=== PATIENT | female | born 1940 | race Caucasian/White ===

== ENCOUNTER → 2017-10-07 | Outpatient (CLI) | payer MEDICARE ==
[~2017-10-07] MED LIST: ALENDRONATE SOD70 MG PO; BENADRYL25 MG PO; DELTASONE50 MG PO; EPI-PEN1 MG/ML MR; FAMOTIDINE40 MG PO; FIBER TABLETS1 TAB PO; LEVOTHYROXINE0.1 M1 PO; MINOCYCLINE HC100 MG PO; PEPCID20 MG PO; SIMVASTATIN40 MG PO
== END | disposition home or self-care (01) ==
LOC: MAMMO 09-27 08:30
DX: Z12.31 Encounter for screening mammogram for malignant neoplasm of breast (principal)

== ENCOUNTER → 2018-10-12 | Outpatient (CLI) | payer MEDICARE | END | disposition home or self-care (01) | LOC: MAMMO 02:14 | DX: Z12.31 Encounter for screening mammogram for malignant neoplasm of breast (principal); R92.1 Mammographic calcification found on diagnostic imaging of breast ==

== ENCOUNTER 2025-11-05 17:17 | Inpatient (IN) | payer MEDICARE ==
[~2025-11-05] VITALS: Ht 160 cm; Wt 68.2 kg
[2025-11-05 17:27] VITALS: BP 179/98
[2025-11-05] MEDS ORDERED: HYDROCODONE-AC1 EAC1 PO (18:54)
[2025-11-05 19:06] LABS: BILIRUBIN Negative (Negative); BLOOD Trace-Lysed (Negative); CLARITY Cloudy (Clear); COLOR Yellow (Yellow); KETONE Negative (Negative); LEUKO ESTERASE 3+ (Negative); NITRITE Positive (Negative); PH 7.0 (4.5-8.0); SPECIFIC GRAVITY 1.015 (1.001-1.030); UROBILINOGEN 1.0 E.U./dl (0.0-1.0)
[2025-11-05 19:15] LABS: BACTERIA 3+; MUCOUS TRACE; WBC TNTC wbc/hpf (0-5)
[2025-11-05] MEDS ORDERED: Acetaminophen/Oxycodone 5 MG/325 MG TABLET PO ONE (19:25)
[2025-11-05] MEDS ORDERED: LOSARTAN POTASS25 M1 PO (19:45)
[2025-11-05] MEDS ORDERED: SODIUM CHLORIDE 0.9% 1,000 ML IV ONE (19:50)
[2025-11-05 20:06] LABS: BASO # 0.1 10*3/uL (0.0-0.1); BASO % 0.3 % (0.0-1.0); EOS # 0.0 10*3/uL (0.0-0.4); EOS % 0.2 % (1.0-4.0); MEAN CELL VOLUME 94.7 fl (81.0-99.0); MEAN CORPUSCULAR HGB 29.8 pg (27.0-31.0); MEAN PLATELET VOLUME 10.9 fl (9.6-12.3); MONO # 0.9 10*3/uL (0.1-1.0); MONO % 5.8 % (3.0-9.0); NEUT # 12.2 10*3/uL (2.3-7.9); NEUT % 82.8 % (47.0-73.0); NUCLEATED RED BLOOD CELL 0.0 % (0.0-0.0); NUCLEATED RED BLOOD CELL 0.0 10*3/uL (0.0-0.0); PLATELET COUNT AUTOMATED 209 10*3/uL (130-400); RED CELL DISTRI WIDTH 12.4 % (0-14.5)
[2025-11-05] MEDS ORDERED: Ondansetron Hydrochloride 4 MG/2 ML VIAL IV PRN (20:20)
[2025-11-05] MEDS ORDERED: ACETAMINOPHEN 325 MG TAB PO PRN (20:20)
[2025-11-05] MEDS ORDERED: Acetaminophen/Hydrocodone 5 MG/325 MG TABLET PO PRN (20:20)
[2025-11-05] MEDS ORDERED: BISACODYL 5 MG TAB PO PRN (20:20)
[2025-11-05 20:30] VITALS: BP 156/73
[2025-11-05] MEDS ORDERED: IRBESARTAN150 MG PO (20:42)
[2025-11-05 21:10] LABS: BUN 21 mg/dl (9-23); SGPT/ALT 31 U/L (5-49)
[2025-11-06] VITALS: BP 129/59; BP 148/94
[2025-11-06 06:24] LABS: BASO # 0.0 10*3/uL (0.0-0.1); BASO % 0.2 % (0.0-1.0); EOS # 0.1 10*3/uL (0.0-0.4); EOS % 1.6 % (1.0-4.0); MEAN CELL VOLUME 94.5 fl (81.0-99.0); MEAN CORPUSCULAR HGB 30.4 pg (27.0-31.0); MEAN PLATELET VOLUME 10.7 fl (9.6-12.3); MONO # 0.9 10*3/uL (0.1-1.0); MONO % 10.8 % (3.0-9.0); NEUT # 6.1 10*3/uL (2.3-7.9); NEUT % 70.7 % (47.0-73.0); NUCLEATED RED BLOOD CELL 0.0 % (0.0-0.0); NUCLEATED RED BLOOD CELL 0.0 10*3/uL (0.0-0.0); PLATELET COUNT AUTOMATED 178 10*3/uL (130-400); RED CELL DISTRI WIDTH 12.6 % (0-14.5)
[2025-11-06 06:45] LABS: BUN 19 mg/dl (9-23); FREE T4 1.24 ng/dl (0.89-1.76); LDL CHOLESTEROL 78 mg/dL (9-159); SGPT/ALT 37 U/L (5-49)
[2025-11-06 08:00] VITALS: BP 130/73
[2025-11-06] MEDS ORDERED: ATORVASTATIN CALCIUM 40 MG TABLET PO SCH (10:00)
[2025-11-06] MEDS ORDERED: FAMOTIDINE 20 MG TAB PO SCH (10:00)
[2025-11-06 12:00] VITALS: BP 148/59
[2025-11-06] MEDS ORDERED: Acetaminophen/Hydrocodone ES 7.5/325 tablet PO PRN (14:25)
[2025-11-06 16:00] VITALS: BP 117/66; BP 148/59
[2025-11-06 20:00] VITALS: BP 130/67
[2025-11-06] MEDS ORDERED: TEMAZEPAM 15 MG CAP PO PRN (22:00)
[2025-11-07] VITALS: BP 116/47
[2025-11-07 07:22] LABS: BASO # 0.0 10*3/uL (0.0-0.1); BASO % 0.4 % (0.0-1.0); EOS # 0.2 10*3/uL (0.0-0.4); EOS % 2.8 % (1.0-4.0); MEAN CELL VOLUME 96.1 fl (81.0-99.0); MEAN CORPUSCULAR HGB 30.7 pg (27.0-31.0); MEAN PLATELET VOLUME 10.6 fl (9.6-12.3); MONO # 1.0 10*3/uL (0.1-1.0); MONO % 12.5 % (3.0-9.0); NEUT # 5.2 10*3/uL (2.3-7.9); NEUT % 63.2 % (47.0-73.0); NUCLEATED RED BLOOD CELL 0.0 % (0.0-0.0); NUCLEATED RED BLOOD CELL 0.0 10*3/uL (0.0-0.0); PLATELET COUNT AUTOMATED 174 10*3/uL (130-400); RED CELL DISTRI WIDTH 12.8 % (0-14.5)
[2025-11-07 07:48] LABS: BUN 17 mg/dl (9-23)
[2025-11-07 08:00] VITALS: BP 141/57
[2025-11-07 12:00] VITALS: BP 138/69
[2025-11-07] MEDS ORDERED: Acetaminophen/Oxycodone Hydr 7.5 MG/325 MG TABLET PO PRN (12:10)
[2025-11-07] MEDS ORDERED: HYDROmorphONE Hydrochloride 0.5 MG/0.5 ML SYRINGE IV PRN (14:40)
[2025-11-07] MEDS ORDERED: SODIUM CHLORIDE 0.9% 1,000 ML IV ONE (14:40)
[2025-11-07] MEDS ORDERED: diphenhydrAMINE hydrochloride 50 MG/ML VIAL IV ONE (14:40)
[2025-11-07 16:00] VITALS: BP 137/54
[2025-11-07] MEDS ORDERED: Acetaminophen/Oxycodone Hydr 7.5 MG/325 MG TABLET PO SCH (18:00)
[2025-11-07 20:00] VITALS: BP 131/62
[2025-11-08] VITALS: BP 131/62
[2025-11-08 06:27] LABS: BASO # 0.0 10*3/uL (0.0-0.1); BASO % 0.5 % (0.0-1.0); EOS # 0.2 10*3/uL (0.0-0.4); EOS % 2.8 % (1.0-4.0); MEAN CELL VOLUME 96.2 fl (81.0-99.0); MEAN CORPUSCULAR HGB 30.9 pg (27.0-31.0); MEAN PLATELET VOLUME 11.0 fl (9.6-12.3); MONO # 1.0 10*3/uL (0.1-1.0); MONO % 13.8 % (3.0-9.0); NEUT # 4.4 10*3/uL (2.3-7.9); NEUT % 59.2 % (47.0-73.0); NUCLEATED RED BLOOD CELL 0.0 % (0.0-0.0); NUCLEATED RED BLOOD CELL 0.0 10*3/uL (0.0-0.0); PLATELET COUNT AUTOMATED 167 10*3/uL (130-400); RED CELL DISTRI WIDTH 12.6 % (0-14.5)
[2025-11-08 06:28] LABS: BUN 13 mg/dl (9-23)
[2025-11-08 08:00] VITALS: BP 117/50
[2025-11-08] MEDS ORDERED: Vancomycin Hydrochloride 1,000 MG in SODIUM CHLORIDE 0.9% 250 ML IV SCH (11:00)
[2025-11-08 12:00] VITALS: BP 135/46
[2025-11-08 16:00] VITALS: BP 103/33
[2025-11-08 20:00] VITALS: BP 125/45
[2025-11-09] VITALS: BP 112/48
[2025-11-09 06:07] LABS: BASO # 0.0 10*3/uL (0.0-0.1); BASO % 0.4 % (0.0-1.0); EOS # 0.3 10*3/uL (0.0-0.4); EOS % 4.0 % (1.0-4.0); MEAN CELL VOLUME 95.4 fl (81.0-99.0); MEAN CORPUSCULAR HGB 30.4 pg (27.0-31.0); MEAN PLATELET VOLUME 10.7 fl (9.6-12.3); MONO # 1.0 10*3/uL (0.1-1.0); MONO % 11.9 % (3.0-9.0); NEUT # 4.9 10*3/uL (2.3-7.9); NEUT % 59.8 % (47.0-73.0); NUCLEATED RED BLOOD CELL 0.0 % (0.0-0.0); NUCLEATED RED BLOOD CELL 0.0 10*3/uL (0.0-0.0); PLATELET COUNT AUTOMATED 157 10*3/uL (130-400); RED CELL DISTRI WIDTH 12.8 % (0-14.5)
[2025-11-09 06:33] LABS: BUN 12 mg/dl (9-23)
[2025-11-09 08:00] VITALS: BP 126/70
[2025-11-09 12:00] VITALS: BP 122/68
[2025-11-09] MEDS ORDERED: BENZONATATE 100 MG CAP PO PRN (14:15)
[2025-11-09 16:00] VITALS: BP 121/42
[2025-11-09 20:00] VITALS: BP 104/48
[2025-11-10] VITALS: BP 119/48
[2025-11-10 06:07] LABS: BASO # 0.0 10*3/uL (0.0-0.1); BASO % 0.5 % (0.0-1.0); EOS # 0.4 10*3/uL (0.0-0.4); EOS % 4.9 % (1.0-4.0); MEAN CELL VOLUME 97.4 fl (81.0-99.0); MEAN CORPUSCULAR HGB 30.6 pg (27.0-31.0); MEAN PLATELET VOLUME 10.8 fl (9.6-12.3); MONO # 1.1 10*3/uL (0.1-1.0); MONO % 13.7 % (3.0-9.0); NEUT # 4.1 10*3/uL (2.3-7.9); NEUT % 52.6 % (47.0-73.0); NUCLEATED RED BLOOD CELL 0.0 % (0.0-0.0); NUCLEATED RED BLOOD CELL 0.0 10*3/uL (0.0-0.0); PLATELET COUNT AUTOMATED 169 10*3/uL (130-400); RED CELL DISTRI WIDTH 13.1 % (0-14.5)
[2025-11-10 06:36] LABS: BUN 12 mg/dl (9-23)
[2025-11-10 10:00] VITALS: BP 132/59
[2025-11-10 13:40] VITALS: BP 118/60
[2025-11-10] MEDS ORDERED: BENZONATATE100 M1 PO (14:24)
[2025-11-10] MEDS ORDERED: LEVOFLOXACIN750 M2 PO (14:24)
[2025-11-10] MEDS ORDERED: OXYCODONE HCL5 MG PO (14:24)
[2025-11-10] MEDS ORDERED: ATORVASTATIN CA40 M1 PO (14:24)
[2025-11-10] MEDS ORDERED: TRANSDERM-SCOP1 EAC1 T (14:24)
[2025-11-10] MEDS ORDERED: LOPRESSOR25 MG PO (15:22)
== END 2025-11-10 19:38 | disposition home health service (06) | DRG 184 ==
LOC: ED 17:17 → EDHOLD 19:38 → 5E 19:38 → EDHOLD 19:38 → 5E 20:03
PROVIDERS: Student in an Organized Health Care Education/Training Program; ADMIT Internal Medicine; ATTEND Internal Medicine
DX: S22.41XA Multiple fractures of ribs, right side, initial encounter for closed fracture (principal); N39.0 Urinary tract infection, site not specified; Z16.12 Extended spectrum beta lactamase (ESBL) resistance; G90.9 Disorder of the autonomic nervous system, unspecified; M85.80 Other specified disorders of bone density and structure, unspecified site; R82.71 Bacteriuria; R91.1 Solitary pulmonary nodule; I10 Essential (primary) hypertension; M51.369 Other intervertebral disc degeneration, lumbar region without mention of lumbar back pain or lower extremity pain; E03.9 Hypothyroidism, unspecified; E78.5 Hyperlipidemia, unspecified; K21.9 Gastro-esophageal reflux disease without esophagitis; Z66 Do not resuscitate; B96.1 Klebsiella pneumoniae [K. pneumoniae] as the cause of diseases classified elsewhere; W01.0XXA Fall on same level from slipping, tripping and stumbling without subsequent striking against object, initial encounter; Y93.89 Activity, other specified; Y92.89 Other specified places as the place of occurrence of the external cause; Y99.8 Other external cause status; Z90.710 Acquired absence of both cervix and uterus; Z90.89 Acquired absence of other organs